=== PATIENT | male | born 1955 | race Caucasian/White ===

== ENCOUNTER → 2018-02-04 | Outpatient (CLI) | payer SELFPAY ==
[~2018-02-04] MED LIST: CEFTIN500 MG PO; CLARITIN,ALAVAR10 MG PO; Claritin,Alavart PO; DELTASONE10 MG PO; DELTASONE20 MG PO; Hydrodiuril,Oretic,E PO; NOHOMEMEDS; ZITHROMAX250 MG PO
== END | disposition home or self-care (01) ==
LOC: EKG 12:44
DX: I07.1 Rheumatic tricuspid insufficiency (principal); I09.89 Other specified rheumatic heart diseases
CPT/HCPCS: 93306